=== PATIENT | female | born 1985 | race Caucasian/White ===

== ENCOUNTER 2021-06-02 18:58 | Emergency (ER) | payer OTHER ==
[2021-06-02 22:04] LABS: BASOPHIL 0.6 % (0-2); EOSINOPHIL 2.3 % (0-5); HCT 38.8 % (37.0-47.0); HGB 12.5 g/dl (12.5-16.0); LYMPHOCYTE 25.7 % (15-48); MCH 30.1 pg (25.0-31.0); MCHC 32.2 g/dL (32.0-36.0); MCV 93.5 fL (78.0-100.0); MPV 10.3 fL (6.0-9.5); NEUTROPHIL 64.1 % (41-80); NRBC 0; PLT 281 K/uL (150-400); RBC 4.15 M/uL (4.20-5.40); RDW 12.6 % (11.5-14.0); WBC 9.6 K/uL (4.0-10.5)
[2021-06-02 22:18] LABS: BUN/CREAT RATIO (CALC) 18.2 RATIO; CREATININE 0.66 mg/dL (0.51-0.95); POTASSIUM 3.6 mmol/L (3.5-5.1)
[2021-06-02] MEDS ORDERED: BACLOFEN 10MG T10 MG PO (23:04)
[2021-06-02] MEDS ORDERED: ASPIRIN EC81 MG PO (23:04)
== END 2021-06-02 23:19 | disposition home or self-care (01) ==
LOC: FER 18:58
PROVIDERS: Emergency Medicine Emergency Medical Services
DX: M79.661 Pain in right lower leg (principal)
CPT/HCPCS: 36415; 80048; 85025; 85379; 93971